=== PATIENT | female | born 1990 | race Caucasian/White ===

== ENCOUNTER 2021-10-07 03:29 | Day surgery (SDC) | payer OTHER ==
[2021-10-07 03:51] VITALS: BMI 34.5
[2021-10-07 04:06] LABS: Bilirubin Neg (Negative); Blood, Urine Negative (Negative); Clarity Clear (Clear); Glucose, Urine (Dipstick) Normal (Negative); Ketone, Urine 5 mg/dL (Negative); Leukocyte Negative (Negative); Nitrite Negative (Negative); Protein, Urine (Dipstick) Negative (Neg-Trace); Specific Gravity, Urine 1.015 (1.002-1.036); Urobilinogen Normal mg/dL (Less than 2); pH, Urine 6.5 (5.0-9.0)
[2021-10-07 04:37] LABS: Bacteria/HPF None Seen HPF (None Seen); RBC/HPF 0-3 HPF (0-3); WBC/HPF 0-3 HPF (0-3)
[2021-10-07] MEDS ORDERED: Acetaminophen 500 MG TAB PO SCH (04:45)
== END 2021-10-07 04:57 | disposition home or self-care (01) ==
LOC: CSHLD/OP 03:29
PROVIDERS: ATTEND Family Medicine
DX: O26.893 Other specified pregnancy related conditions, third trimester (principal); R10.9 Unspecified abdominal pain; O99.343 Other mental disorders complicating pregnancy, third trimester; F41.9 Anxiety disorder, unspecified; Z3A.33 33 weeks gestation of pregnancy; Z79.899 Other long term (current) drug therapy; Z88.8 Allergy status to other drugs, medicaments and biological substances; Z90.49 Acquired absence of other specified parts of digestive tract
CPT/HCPCS: 81001; 99283

== ENCOUNTER 2021-11-01 15:39 | Day surgery (SDC) | payer OTHER ==
[2021-11-01 16:06] VITALS: BMI 40.4
[2021-11-01] MEDS ORDERED: hydrALAZINE 20 MG/ML VIAL SLOW IVP PRN (16:13)
[2021-11-01 16:36] LABS: #Basophils 0.1 10x3/uL (0.0-0.2); #Eosinphils 0.2 10x3/uL (0.0-0.5); #Monocytes 0.7 10x3/uL (0.0-1.1); #Neutrophils 6.2 10x3/uL (1.5-8.4); %Basophils 0.5 % (0.0-2.0); %Eosinophils 2.3 % (0.0-6.0); %Lymphocytes 31.9 % (18.0-47.0); %Monocytes 6.3 % (0.0-10.0); %Neutrophils 58.2 % (40.0-75.0); Hemoglobin 10.5 g/dL (12.0-15.5); Mean Corpuscular HGB CONC 33.2 g/dL (32.0-36.0); Mean Corpuscular Hemoglobin 26.9 pg (27.0-33.0); Mean Corpuscular Volume 80.8 fl (81.6-98.3); Platelet Count 302 10x3/uL (150-450); RBC Distribution Width 14.2 % (11.5-14.5); Red Blood Cell (RBC) Count 3.91 10x6/uL (3.90-5.03); White Blood Cell (WBC) Count 10.7 10x3/uL (3.5-10.5)
[2021-11-01 16:54] LABS: ALT (SGPT) 15 U/L (8-55); AST (SGOT) 22 U/L (5-34); Albumin 2.9 g/dL (3.5-5.0); Alkaline Phosphatase 143 U/L (40-110); Anion Gap 15 mmol/L (10-20); BUN (Urea Nitrogen) 21 mg/dL (7.0-18.7); Bilirubin, Total 0.2 mg/dL (0.2-1.2); Calc. Creatinine Clearance 148 mL/min (70-130); Calcium 9.1 mg/dL (7.8-10.44); Carbon Dioxide 18 mmol/L (22-29); Chloride 109 mmol/L (98-107); Estimated GFR 103; Globulin 3.1 g/dL (2.4-3.5); Glucose 106 mg/dL (70-105); Sodium 138 mmol/L (136-145)
[2021-11-01 17:12] LABS: Creatinine, Urine 205.27 mg/dL (47-110)
== END 2021-11-01 18:00 | disposition home or self-care (01) ==
LOC: CSHLD/OP 15:39
PROVIDERS: ATTEND Family Medicine
DX: O60.03 Preterm labor without delivery, third trimester (principal); Z3A.36 36 weeks gestation of pregnancy; O14.13 Severe pre-eclampsia, third trimester; O26.893 Other specified pregnancy related conditions, third trimester; R51.9 Headache, unspecified; H53.459 Other localized visual field defect, unspecified eye; R60.9 Edema, unspecified; O99.343 Other mental disorders complicating pregnancy, third trimester; F41.9 Anxiety disorder, unspecified; Z79.82 Long term (current) use of aspirin; Z79.899 Other long term (current) drug therapy; Z88.1 Allergy status to other antibiotic agents; Z90.49 Acquired absence of other specified parts of digestive tract; Z98.890 Other specified postprocedural states
CPT/HCPCS: 80053; 82570; 84156; 85025; 99283

== ENCOUNTER 2021-11-05 05:30 | Inpatient (IN) | payer OTHER ==
[2021-11-05] MEDS: Lactated Ringer's 1,000 ML IV SCH ×2 (07:38→09:00)
[2021-11-05] MEDS ORDERED: Bupivacaine 0.25% HCL 30 ML VIAL ONE (08:00)
[2021-11-05] MEDS ORDERED: Bupivacaine/Epinephrine 0.25% 30 ML VIAL ONE (08:00)
[2021-11-05 08:12] VITALS: BMI 40.4
[2021-11-05 08:28] LABS: Hemoglobin 10.8 g/dL (12.0-15.5); Mean Corpuscular HGB CONC 34.1 g/dL (32.0-36.0); Mean Corpuscular Hemoglobin 26.9 pg (27.0-33.0); Mean Corpuscular Volume 78.9 fl (81.6-98.3); Mean Platelet Volume 11.3 fl (7.4-10.4); Platelet Count 312 10x3/uL (150-450); Red Blood Cell (RBC) Count 4.02 10x6/uL (3.90-5.03)
[2021-11-05] MEDS ORDERED: Fentanyl 2 mcg/Bup 0.1% Cadd 100 ML ONE (08:29)
[2021-11-05] MEDS ORDERED: NS w/ Oxytocin 30 units 500 ML ONE (08:29)
[2021-11-05] MEDS ORDERED: hydrALAZINE 20 MG/ML VIAL ONE (08:36)
[2021-11-05] MEDS ORDERED: HYDROcodone/Acetaminophen 5/325 mg Tablet PO PRN (08:55)
[2021-11-05] MEDS ORDERED: Carboprost 250 MCG/ML AMP IM PRN (08:55)
[2021-11-05] MEDS ORDERED: Misoprostol 200 MCG TAB PR PRN (08:55)
[2021-11-05] MEDS ORDERED: Methylergonovine 0.2 MG/ML VIAL IM PRN (08:55)
[2021-11-05] MEDS ORDERED: Lidocaine 1% (PF) 30 ML VIAL SC PRN (08:55)
[2021-11-05] MEDS ORDERED: Promethazine HCl 25 MG/ML VIAL IM PRN ×2 (08:55→09:55)
[2021-11-05] MEDS ORDERED: Ibuprofen 800 MG TAB PO PRN (08:55)
[2021-11-05] MEDS ORDERED: Ondansetron PF 4 MG/2 ML Vial IVP PRN ×2 (08:55→09:55)
[2021-11-05] MEDS ORDERED: Penicillin G Potassium 5 MILL.UNITS in Sodium Chloride 0.9% 100 ML IVPB SCH (09:00)
[2021-11-05] MEDS ORDERED: NS w/ Oxytocin 30 units 500 ML IV SCH ×2 (09:00)
[2021-11-05 09:49] LABS: Syphilis Antibody Nonreactive (Nonreactive); Syphilis Antibody Index 0.05 S/CO (<1.00 Non-Reactive)
[2021-11-05 09:54] LABS: ALT (SGPT) 19 U/L (8-55); AST (SGOT) 27 U/L (5-34); Albumin 3.2 g/dL (3.5-5.0); Alkaline Phosphatase 156 U/L (40-110); Anion Gap 15 mmol/L (10-20); BUN (Urea Nitrogen) 20 mg/dL (7.0-18.7); Bilirubin, Total 0.2 mg/dL (0.2-1.2); Calc. Creatinine Clearance 156 mL/min (70-130); Calcium 8.8 mg/dL (7.8-10.44); Carbon Dioxide 17 mmol/L (22-29); Chloride 107 mmol/L (98-107); Estimated GFR 109; Globulin 2.7 g/dL (2.4-3.5); Glucose 113 mg/dL (70-105); Protein, Total 5.9 g/dL (6.0-8.3); Sodium 135 mmol/L (136-145)
[2021-11-05] MEDS: Acetaminophen 500 MG TAB PO PRN (09:54)
[2021-11-05] MEDS ORDERED: Lactated Ringer's 500 ML IV PRN (09:55)
[2021-11-05] MEDS ORDERED: Naloxone HCl 0.4 mg/ml Vial IVP PRN ×2 (09:55)
[2021-11-05] MEDS ORDERED: diphenhydrAMINE 50 MG/ML VIAL IVP PRN (09:55)
[2021-11-05] MEDS ORDERED: Moisturizing Cream (Eucerin) 113 GM JAR TOP PRN (09:55)
[2021-11-05] MEDS ORDERED: ePHEDrine Sulfate 50 MG/10 ML VIAL SLOW IVP PRN (09:55)
[2021-11-05] MEDS ORDERED: Acetaminophen 325 MG TAB PO PRN (09:55)
[2021-11-05] MEDS ORDERED: Communication Order-Pharmacy FS SCH (10:00)
[2021-11-05] MEDS ORDERED: Fentanyl 2 mcg/Bupivacaine 0.1% Cassette 100 ML EPIDURAL SCH (10:00)
[2021-11-05 10:20] LABS: SARS-CoV-2 NAA Rapid Test Not Detected (NotDetected)
[2021-11-05 10:28] LABS: HBSAg Index 0.21 S/CO (0-0.99); Hep B Surf Ag Non-Reactive S/CO (NonReactive)
[2021-11-05 11:57] LABS: HIV (1/2) Antibody/Antigen Non-Reactive (NonReactive); HIV 1/2 INDEX 0.11 S/CO (<1.00)
[2021-11-05] MEDS: hydrALAZINE 20 MG/ML VIAL SLOW IVP PRN ×2 (13:09→13:54)
[2021-11-05] MEDS ORDERED: Magnesium Sulfate 20 gm/500 ml 20 GM/500 ML BAG ONE (13:22)
[2021-11-05] MEDS: Penicillin G 2.5 MILL.units 2.5 MILL.UNITS in Premix Bag 1 BAG IVPB SCH (13:30)
[2021-11-05] MEDS: Magnesium Sulfate 20 gm/500 ml 20 GM/500 ML BAG IVPB SCH (13:55)
[2021-11-05] MEDS ORDERED: Carboprost 250 MCG/ML AMP ONE (14:35)
[2021-11-05] MEDS ORDERED: hydrALAZINE 20 MG/ML VIAL SLOW IVP PRN (16:31)
[2021-11-05] MEDS ORDERED: Milk Of Magnesia 30 ML UDCUP PO PRN (16:31)
[2021-11-05] MEDS ORDERED: Lanolin Ointment 7 GM TUBE TOP PRN (16:31)
[2021-11-05] MEDS ORDERED: Bisacodyl 10 MG SUPP PR PRN (16:31)
[2021-11-05] MEDS ORDERED: Benzocaine-Menthol 82.5 ML CAN TOP PRN (16:31)
[2021-11-05] MEDS ORDERED: Ferrous Sulfate 325 MG TAB PO SCH (17:00)
[2021-11-05] MEDS ORDERED: Docusate 100 MG CAP PO SCH (21:00)
[2021-11-05] MEDS: HYDROcodone/Acetaminophen 5/325 mg Tablet PO PRN (22:49)
[2021-11-06] MEDS: Acetaminophen 500 MG TAB PO PRN (01:32)
[2021-11-06] MEDS: Ibuprofen 800 MG TAB PO SCH ×4 (03:12→21:59)
[2021-11-06] MEDS: Lactated Ringer's 1,000 ML IV SCH ×2 (03:18→19:38)
[2021-11-06] MEDS: HYDROcodone/Acetaminophen 5/325 mg Tablet PO PRN ×2 (08:13→13:42)
[2021-11-06] MEDS: Magnesium Sulfate 20 gm/500 ml 20 GM/500 ML BAG IVPB SCH (08:16)
[2021-11-06] MEDS ORDERED: Docusate 100 MG CAP PO SCH (18:54)
[2021-11-06] MEDS ORDERED: Bisacodyl 10 MG SUPP PR PRN (18:54)
[2021-11-06] MEDS ORDERED: Milk Of Magnesia 30 ML UDCUP PO PRN (18:54)
[2021-11-06] MEDS ORDERED: hydrALAZINE 20 MG/ML VIAL SLOW IVP PRN (18:54)
[2021-11-06] MEDS: Penicillin G 2.5 MILL.units 2.5 MILL.UNITS in Premix Bag 1 BAG IVPB SCH ×2 (19:36→19:37)
[2021-11-06] MEDS: Ferrous Sulfate 325 MG TAB PO SCH (19:39)
[2021-11-06] MEDS: Docusate 100 MG CAP PO SCH (21:59)
[2021-11-07] MEDS: Ibuprofen 800 MG TAB PO SCH ×3 (05:11→21:41)
[2021-11-07] MEDS: Ferrous Sulfate 325 MG TAB PO SCH ×2 (08:48→14:45)
[2021-11-07] MEDS: Docusate 100 MG CAP PO SCH ×2 (08:50→21:41)
[2021-11-07] MEDS ORDERED: NIFEdipine XL 30 MG TAB PO SCH (13:00)
[2021-11-07] MEDS ORDERED: NIFEdipine 10 MG CAP PO SCH (13:00)
[2021-11-07] MEDS: HYDROcodone/Acetaminophen 5/325 mg Tablet PO PRN (21:41)
[2021-11-08] MEDS: Ibuprofen 800 MG TAB PO SCH (05:52)
[2021-11-08] MEDS: Ferrous Sulfate 325 MG TAB PO SCH (08:08)
[2021-11-08] MEDS: Docusate 100 MG CAP PO SCH (08:08)
[2021-11-08] MEDS: HYDROcodone/Acetaminophen 5/325 mg Tablet PO PRN (08:11)
[2021-11-08] MEDS ORDERED: NIFEdipine XL 60 MG TAB PO SCH (09:00)
[2021-11-08] MEDS ORDERED: NIFEdipine XL 30 MG TAB PO SCH (09:00)
[2021-11-08 12:01] VITALS: BP 138/84; TEMP 97.9
== END 2021-11-08 13:05 | disposition home or self-care (01) | DRG 807 ==
LOC: CSHLD 06:42 → CSHPED 11-06 17:14
PROVIDERS: ADMIT Family Medicine; ATTEND Family Medicine
PROC: 10E0XZZ Delivery of Products of Conception, External Approach (ICD-10-PCS; principal; 2021-11-05)
PROC: 10907ZC Drainage of Amniotic Fluid, Therapeutic from Products of Conception, Via Natural or Artificial Opening (ICD-10-PCS; 2021-11-05)
PROC: 10H07YZ Insertion of Other Device into Products of Conception, Via Natural or Artificial Opening (ICD-10-PCS; 2021-11-05)
DX: O14.14 Severe pre-eclampsia complicating childbirth (principal); Z37.0 Single live birth; Z20.822 Contact with and (suspected) exposure to COVID-19; Z3A.36 36 weeks gestation of pregnancy; Z79.82 Long term (current) use of aspirin; Z79.899 Other long term (current) drug therapy; Z88.8 Allergy status to other drugs, medicaments and biological substances; O69.81X0 Labor and delivery complicated by cord around neck, without compression, not applicable or unspecified
CPT/HCPCS: 36415; 51702; 80053; 85027; 86780; 86850; 86900; 86901; 87340; 87389; J0360; J1200; J2405; J2540; J2590; J3475; J3490; J7120; S0020; U0002